=== PATIENT | male | born 1955 | race Caucasian/White ===

== ENCOUNTER 2019-02-07 08:22 | Inpatient (IN) | payer MEDICARE, OTHER | END 2019-02-08 16:01 | disposition home or self-care (01) | LOC: PAS IN 08:22 → ORTHO 4S 19:15 | PROC: 0SRC0J9 Replacement of Right Knee Joint with Synthetic Substitute, Cemented, Open Approach (ICD-10-PCS; principal; 2019-02-07 14:20) | PROC: 8E0YXBZ Computer Assisted Procedure of Lower Extremity (ICD-10-PCS; 2019-02-07 14:20) | DX: M17.11 Unilateral primary osteoarthritis, right knee (principal); D62 Acute posthemorrhagic anemia ==

== ENCOUNTER 2024-08-31 10:29 | Outpatient (CLI) | payer MEDICARE ==
[~2024-08-31 10:29] MED LIST: ADV50100 INH; ASPI-1 PO; FLO0.4C PO; LINA290C PO; METO-411 PO; OMEP20CA16 PO; PREG100C PO; TEST200V33 IM; WALKERFR
== END 2024-08-31 23:59 | disposition home or self-care (01) ==
LOC: MRI02 10:29
PROVIDERS: ATTEND Physician Assistant
DX: M50.123 Cervical disc disorder at C6-C7 level with radiculopathy (principal); M47.22 Other spondylosis with radiculopathy, cervical region; M48.02 Spinal stenosis, cervical region
CPT/HCPCS: 72141